=== PATIENT | male | born 1990 | race Two or more races ===

== ENCOUNTER 2017-02-11 19:10 | Emergency (ER) | payer OTHER, BC ==
[2017-02-11 19:16] VITALS: RESP 18
[2017-02-11] MEDS ORDERED: PROPARACAINE 0.5% 15 ML OPHT DROP OP ONE (21:01)
[2017-02-11] MEDS ORDERED: FLUORESCEIN SODIUM 1 MG STRIP OP ONE (21:01)
--- NOTE | 2017-02-11 21:10 | EDPHY ---
General Narrative: CHIEF COMPLAINT: Eye pain, foreign body exposure HISTORY OF PRESENT ILLNESS: Patient complains of left eye pain REVIEW OF SYSTEMS: Ten systems reviewed and are negative unless otherwise noted in the HPI PCP: None SPECIALISTS: None PAST MEDICAL HISTORY: None PAST SURGICAL HISTORY: None SOCIAL HISTORY: Nonsmoker. Originally from [facility]. Moved here less than 2 years ago. FAMILY HISTORY: Noncontributory EXAMINATION General Appearance: Alert, no distress Head: normocephalic, atraumatic Eyes: Pupils equal and round, no conjunctival pallor. Mild left conjunctival injection. No hyphema. No subconjunctival hemorrhage. Slit-lamp examination reveals corneal abrasion on the left eye centrally 1/2 cm in diameter. There is no rust ring or foreign body. No foreign body in the anterior chamber. Kenny -Pen values are symmetric. PH 6.5-7. EOMs intact ENT, Mouth: Mucous membranes moist Neurological: A&O, nonfocal, normal gait Skin: Warm and dry, no rash. No petechiae purpura DIFFERENTIAL DIAGNOSES: Including but not limited to corneal abrasion, foreign body, global rupture, corneal ulceration MDM: 9:05 p.m. Exposure to unknown foreign body of the left eye. The patient is in a hallway bed, thus I will request the patient be moved to room for formal slit-lamp examination 9:30 p.m. Slit-lamp reveals a large corneal abrasion over the field of view, approximately half a cm. I do not appreciate anything anterior chamber. PH is 6.5-7. Kenny-Pen is normal. I will consult Ophthalmology. 9:45 p.m. Case discussed with on-call backwinder Dr. Aguilera. I discussed the history of present illness, the findings. He recommends erythromycin ointment and he would like the patient to be seen in his office tomorrow morning. He does not recommend any imaging. I have also ordered irrigation. The patient is comfortable with this plan. He is discharged home stable condition with ED precautions - History Smoking Status: Never smoked - Objective Vital Signs: Initial Vital Signs Temperature (C) 97.7 F 02/11/17 19:10 Heart Rate 86 02/11/17 19:10 Respiratory Rate 18 02/11/17 19:10 Blood Pressure 114/68 02/11/17 19:10 O2 Sat (%) 96 02/11/17 19:10 O2 Delivery Mode Room Air Allergies/Adverse Reactions: No Known Allergies Allergy (Unverified 02/11/17 19:16) Home Medications: Medication Instructions Recorded Erythromycin 0.5% 1 keila OP TID #1 opht.oint 02/11/17 Medications Given: Discontinued Medications Erythromycin (Erythromycin 0.5%) 1 keila LEFTEYE ONCE ONE Stop: 02/11/17 21:47 Last Admin: 02/11/17 22:25 Dose: 1 keila Fluorescein Sodium ([id number]) 1 mg OP EDNOW ONE Stop: 02/11/17 21:02 Last Admin: 02/11/17 21:06 Dose: 1 mg Proparacaine HCl (Alcaine 0.5%) 1 drops OP EDNOW ONE Stop: 02/11/17 21:02 Last Admin: 02/11/17 21:06 Dose: 1 drop Departure - Departure Disposition: Home, Routine, Self-Care Clinical Impression: Corneal abrasion, left Qualifiers: Encounter type: initial encounter Qualified Code(s): S05.02XA - Injury of conjunctiva and corneal abrasion without foreign body, left eye, initial encounter Condition: Good Instructions: Corneal Abrasion (ED) Additional Instructions: 1. Eye patch this evening 2. Erythromycin ointment topical 3 times daily 3. Follow up with Ophthalmology tomorrow morning 4. ED precautions as discussed Referrals: NONE *PRIMARY CARE P,. [Primary Care Provider] - As per Instructions Marsha Aguilera MD [Medical Doctor] - As per Instructions Stand Alone Forms: Work Comp Follow Up, Work Excuse Prescriptions: Erythromycin 0.5% 1 keila OP TID #1 opht.oint
[2017-02-11] MEDS ORDERED: ERYTHROMYCIN 0.5% 1 GM OPHT.OINT LEFTEYE ONE (21:46)
[2017-02-11 22:24] VITALS: BP 109/75; PULSE 68; TEMP 97.9; O2SAT 97
== END 2017-02-11 22:26 | disposition home or self-care (01) ==
DX: S05.02XA Injury of conjunctiva and corneal abrasion without foreign body, left eye, initial encounter (principal); X58.XXXA Exposure to other specified factors, initial encounter